=== PATIENT | male | born 1975 | race Caucasian/White ===

== ENCOUNTER 2016-05-12 03:34 | Emergency (ER) | payer OTHER ==
[~2016-05-12] VITALS: Ht 190.5 cm; Wt 86.0 kg
[~2016-05-12 03:34] MED LIST: BACT800T5 PO; ERYT2GEL2 EX; TRET45CR EX; VARE.5 PO
[2016-05-12 03:39] VITALS: BP 137/80; PULSE 100; RESP 16; TEMP 97.4; O2SAT 98
[2016-05-12 03:57] VITALS: BP 139/81; PULSE 99; RESP 16; O2SAT 98
[2016-05-12] MEDS ORDERED: GABA100C4 PO (04:03)
--- NOTE | 2016-05-12 04:06 | PD ---
HPI Chief Complaint: Pain: Acute or Chronic Time Seen by Provider: 04:02 Travel History International Travel<30 days: No Contact w/Intl Traveler<30days: No Traveled to known affect area: No History of Present Illness HPI This is a 40-year-old male who presents to the emergency department with body aches all over his body described as in his joints, moderate severity, constant , associated with generalized weakness that's been going on for 3 days. He reports he had a nonproductive cough yesterday. He's had some chills and some dysuria. He's never had symptoms like this before. He tried some BC powder but it's not helping. 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 He has a remote history of IV drug use and he says he last used 3 years ago. He has had episodes of epididymitis in the past. He says when he was a child he had a hypospadias repair and he was being evaluated by a urologist for possible back flow of urine into his kidneys. PFSH Past Medical History Blood Disorders: No Bipolar Disorder: Yes Anxiety: Yes Depression: Yes Cancer: No Cardiovascular Problems: No Diabetes: No Diminished Hearing: No Endocrine: No Gastrointestinal Disorders: Yes (IBS) Genitourinary: No Hepatitis: Yes (C) Musculoskeletal: Yes Neurologic: No Psychiatric: Yes (PARANOIA) Reproductive: No Respiratory: No Thyroid Disease: No Influenza Vaccination: Yes Past Surgical History Other Surgery: Yes (UROLOGY SX PT DOES NOT KNOW WHAT KIND OF SX AGE 1) Social History Alcohol Use: Yes (ONCE A WEEK) Tobacco Use: No Substance Use: Yes (former) Allergies-Medications (Allergen,Severity, Reaction): Coded Allergies: No Known Allergies (Verified , 05/12/16) Reported Meds & Prescriptions Reported Meds & Active Scripts Active Reported Gabapentin 100 Mg Cap 100 Mg PO TID Review of Systems Except as stated in HPI: all other systems reviewed are Neg Physical Exam Narrative GENERAL:Well appearing, no acute distress SKIN: Focused skin assessment warm and dry. HEAD: Atraumatic. Normocephalic. EYES: Pupils equal and round. No injection or drainage. ENT: Moist mucous membranes NECK: Trachea midline. CARDIOVASCULAR: Regular rate and rhythm. No murmur appreciated. RESPIRATORY: Clear to auscultation. Breath sounds equal bilaterally. GASTROINTESTINAL: Abdomen soft, non-tender, nondistended. : Mild tenderness to palpation in the posterior aspect of the scrotum with no testicular swelling and no urethral discharge MUSCULOSKELETAL: No obvious deformities. NEUROLOGICAL: Awake and alert. No obvious cranial nerve deficits. Moving all extremities. PSYCHIATRIC: Appropriate mood and affect; insight and judgment normal. Data Data Last Documented VS Vital Signs Date Time Temp Pulse Resp B/P Pulse Ox O2 Delivery O2 Flow Rate FiO2 05/12/16 03:57 99 16 139/81 98 Room Air 05/12/16 03:39 97.4 Orders Complete Blood Count With Diff (05/12/16 04:02) Comprehensive Metabolic Panel (05/12/16 04:02) Creatine Kinase (Cpk) (05/12/16 04:02) Urinalysis - C+S If Indicated (05/12/16 04:02) ^ Insert Iv (05/12/16 04:02) Sodium Chlor 0.9% 1000 Ml Inj (Ns 1000 M (05/12/16 04:15) Urine Culture (05/12/16 04:15) Ceftriaxone Inj (Rocephin Inj) (05/12/16 05:00) Labs Laboratory Tests Test 05/12/16 05/12/16 04:10 04:15 White Blood Count 16.1 TH/MM3 Red Blood Count 5.15 MIL/MM3 Hemoglobin 15.7 GM/DL Hematocrit 44.2 % Mean Corpuscular Volume 85.9 FL Mean Corpuscular Hemoglobin 30.4 PG Mean Corpuscular Hemoglobin 35.4 % Concent Red Cell Distribution Width 12.7 % Platelet Count 292 TH/MM3 Mean Platelet Volume 7.1 FL Neutrophils (%) (Auto) 86.0 % Lymphocytes (%) (Auto) 6.8 % Monocytes (%) (Auto) 6.4 % Eosinophils (%) (Auto) 0.5 % Basophils (%) (Auto) 0.3 % Neutrophils # (Auto) 13.9 TH/MM3 Lymphocytes # (Auto) 1.1 TH/MM3 Monocytes # (Auto) 1.0 TH/MM3 Eosinophils # (Auto) 0.1 TH/MM3 Basophils # (Auto) 0.0 TH/MM3 CBC Comment DIFF FINAL Differential Comment Sodium Level 138 MEQ/L Potassium Level 3.8 MEQ/L Chloride Level 105 MEQ/L Carbon Dioxide Level 22.8 MEQ/L Anion Gap 10 MEQ/L Blood Urea Nitrogen 19 MG/DL Creatinine 0.87 MG/DL Estimat Glomerular Filtration 97 ML/MIN Rate Random Glucose 74 MG/DL Calcium Level 9.1 MG/DL Total Bilirubin 1.3 MG/DL Aspartate Amino Transf 20 U/L (AST/SGOT) Alanine Aminotransferase 18 U/L (ALT/SGPT) Alkaline Phosphatase 88 U/L Total Creatine Kinase 283 U/L Total Protein 7.8 GM/DL Albumin 4.2 GM/DL Urine Color YELLOW Urine Turbidity HAZY Urine pH 6.5 Urine Specific [place] 1.034 Urine Protein 30 mg/dL Urine Glucose (UA) NEG mg/dL Urine Ketones 150 mg/dL Urine Occult Blood TRACE Urine Nitrite NEG Urine Bilirubin NEG Urine Urobilinogen 2.0 MG/DL Urine Leukocyte Esterase LARGE Urine RBC 12 /hpf Urine WBC /hpf Urine Squamous Epithelial 2 /hpf Cells Urine Renal Epithelial Cells 1 /hpf Urine Mucus FEW /lpf Microscopic Urinalysis Comment CULTURE INDICATED MDM Medical Decision Making Medical Screen Exam Complete: Yes Emergency Medical Condition: Yes Medical Record Reviewed: Yes (patient had a diagnosis of epididymoorchitis back in 2012 and had a urine culture that grew Escherichia coli that was resistant to ciprofloxacin) Interpretation(s) Mild tachycardia Leukocytosis with 86% neutrophils Electrolytes are reassuring CK is normal Urinalysis: Large amount of white blood cells Differential Diagnosis Epididymoorchitis, urinary tract infection, pyelonephritis, rhabdomyolysis, Nancie syndrome, disseminated gonococcal disease Narrative Course This is a 40-year-old male who presents to the emergency department with body aches, malaise and dysuria. He has a history of recurrent genitourinary infections. Back in 2012 his urine culture grew Escherichia coli. He was placed on a monitor and an IV was established. He was found to have a white blood cell count of 16 consistent with an infection. Urinalysis demonstrates a large amount of white blood cells. He has a benign exam. I think given his prior urine culture it's reasonable to treat him with ceftriaxone as well as doxycycline for possible sexually transmitted disease. Patient was advised to follow-up with a urologist. He is nontoxic appearing and I think appropriate for outpatient antibiotics. He Was given a dose of IV antibiotics here in the emergency department. Diagnosis Primary Impression: Epididymoorchitis Referrals: Cricket Leggett MD Patient Instructions: General Instructions Additional Instructions: If you develop fever, persistent vomiting, back pain, or inability to eat return to the emergency department as your urine infection may have progressed to a kidney infection. Complete your antibiotics as prescribed. Stay well hydrated with Gatorade or water. Follow-up with a urologist as an outpatient. Med/Other Pt SpecificInfo: Prescription(s) given Scripts Naproxen 500 Mg [id number] Mg PO BID PRN (PAIN SCALE 4 TO 10) #20 TAB Ref 0 Prov:Jessie Amor MD 05/12/16 Doxycycline Hyclate 100 Mg [id number] Mg PO BID #20 CAP Ref 0 Prov:Jessie Amor MD 05/12/16 Cephalexin (Keflex)500 Mg [id number] Mg PO Q12H 7 Days Ref 0 Prov:Jessie Amor MD 05/12/16 Disposition: 01 DISCHARGE HOME Condition: Stable Jessie Amor MD May 12, 2016 04:06
[2016-05-12] MEDS ORDERED: SODIUM CHLOR 0.9% 1000 ML INJ 1,000 ML IV ONE (04:15)
[2016-05-12 04:25] LABS: AUTOMATED NEUTROPHIL # 13.9 TH/MM3 (1.8-7.7); BASOPHIL % 0.3 % (0.0-2.0); EOSINOPHIL # 0.1 TH/MM3 (0-0.4); EOSINOPHIL % 0.5 % (0.0-4.0); HEMATOCRIT 44.2 % (39.0-51.0); HEMO FLAGS DIFF FINAL; LYMPH % 6.8 % (9.0-44.0); LYMPHOCYTE # 1.1 TH/MM3 (1.0-4.8); MEAN CELL VOLUME 85.9 FL (80.0-100.0); MEAN CORPUSCULAR HEMOGLOBIN 30.4 PG (27.0-34.0); MEAN CORPUSCULAR HGB CONC 35.4 % (32.0-36.0); MONO % 6.4 % (0.0-8.0); PLATELET COUNT 292 TH/MM3 (150-450); RED BLOOD COUNT 5.15 MIL/MM3 (4.50-5.90); RED CELL DISTRIBUTION WIDTH 12.7 % (11.6-17.2); WHITE BLOOD COUNT 16.1 TH/MM3 (4.0-11.0)
[2016-05-12 04:46] LABS: BLOOD, URINE TRACE (NEG); GLUCOSE,URINE NEG (NEG); KETONE, URINE 150 mg/dL (NEG); MUCUS URINE FEW /lpf (OCC); NITRITE,URINE NEG (NEG); PH, URINE 6.5 (5.0-8.5); RENAL EPITHELIAL CELLS 1 /hpf; SQUAMOUS EPITHELIAL CELL URINE 2 /hpf (0-5); URINE COLOR YELLOW (YELLW/STRAW)
[2016-05-12 04:47] LABS: COMMENT (UR) CULTURE INDICATED; CULTURE IF INDICATED CULTURE INDICATED
[2016-05-12 04:54] LABS: ANION GAP 10 MEQ/L (5-15); AST (GOT) 20 U/L (15-37); BICARBONATE 22.8 MEQ/L (21.0-32.0); BLOOD UREA NITROGEN 19 MG/DL (7-18); CHLORIDE 105 MEQ/L (98-107); GLOMERULAR FILTRATION RATE 97 ML/MIN (>89); POTASSIUM 3.8 MEQ/L (3.5-5.1); SODIUM (NA) 138 MEQ/L (136-145)
[2016-05-12 04:57] LABS: ALKALINE PHOSPHATASE 88 U/L (45-117); ALT (GPT) 18 U/L (12-78); CREATINE KINASE 283 U/L (39-308); TOTAL BILIRUBIN ADULT 1.3 MG/DL (0.2-1.0)
[2016-05-12] MEDS ORDERED: cefTRIAXone INJ 1,000 MG in SODIUM CHLORIDE 0.9% INJ 100 ML IV ONE (05:00)
[2016-05-12] MEDS ORDERED: CEPH-460 PO (05:15)
[2016-05-12] MEDS ORDERED: NAPR500T PO (05:15)
[2016-05-12] MEDS ORDERED: DOXY100C PO (05:15)
== END 2016-05-12 05:40 | disposition home or self-care (01) ==
LOC: NEPE 03:34
DX: N45.3 Epididymo-orchitis (principal); R00.0 Tachycardia, unspecified; D72.829 Elevated white blood cell count, unspecified; B96.20 Unspecified Escherichia coli [E. coli] as the cause of diseases classified elsewhere
CPT/HCPCS: 80053; 81001; 82550; 85025; 87077; 87086; 87186; 96361; 96365; 99284; J0696; J7030

== ENCOUNTER 2016-05-31 19:05 | Emergency (ER) | payer OTHER ==
[~2016-05-31] VITALS: Ht 190.5 cm; Wt 88.0 kg
[~2016-05-31 19:05] MED LIST changes: -BACT800T5 PO; +CEPH-460 PO; +DOXY100C PO; -ERYT2GEL2 EX; +GABA100C4 PO; +NAPR500T PO; -TRET45CR EX; -VARE.5 PO
[2016-05-31 19:07] VITALS: BP 145/97; PULSE 83; RESP 16; TEMP 98; O2SAT 98
--- NOTE | 2016-05-31 19:53 | PD ---
HPI Chief Complaint: General Weakness Time Seen by Provider: 19:53 Travel History International Travel<30 days: No Contact w/Intl Traveler<30days: No Traveled to known affect area: No History of Present Illness HPI 40-year-old male presents to the emergency department stay for evaluation of symptoms that have returned after completing his antibiotics 3 days ago. Patient was seen 2 weeks ago for body aches "all over, constant and overall feeling fatigued. He was diagnosed with epididymitis/orchitis at that time and completed his his antibiotics. He has not yet scheduled follow-up with the urologist. He states that he would like to do this but he is just not gotten around to it. Denies any fever but has felt mildly chilled. Is concerned something might be wrong with his kidneys because he has been increasingly thirsty lately. Denies any other symptoms at this time. PFSH Past Medical History Blood Disorders: No Bipolar Disorder: Yes Anxiety: Yes Depression: Yes Cancer: No Cardiovascular Problems: No Diabetes: No Diminished Hearing: No Endocrine: No Gastrointestinal Disorders: Yes (IBS) Genitourinary: No Hepatitis: Yes (C) Musculoskeletal: Yes Neurologic: No Psychiatric: Yes (PARANOIA) Reproductive: No Respiratory: No Thyroid Disease: No Past Surgical History Other Surgery: Yes (UROLOGY SX PT DOES NOT KNOW WHAT KIND OF SX AGE 1) Social History Alcohol Use: Yes (ONCE A WEEK) Tobacco Use: Yes (1 ppd) Substance Use: Yes (former) Allergies-Medications (Allergen,Severity, Reaction): Coded Allergies: No Known Allergies (Verified , 05/31/16) Reported Meds & Prescriptions Reported Meds & Active Scripts Active Naproxen 500 Mg Tab 500 Mg PO BID PRN Doxycycline Hyclate 100 Mg Cap 100 Mg PO BID Keflex (Cephalexin) 500 Mg Cap 500 Mg PO Q12H 7 Days Reported Gabapentin 100 Mg Cap 100 Mg PO TID Review of Systems Except as stated in HPI: all other systems reviewed are Neg Physical Exam Narrative GENERAL: Well-nourished male patient, in no acute distress SKIN: Focused skin assessment warm/dry. HEAD: Atraumatic. Normocephalic. EYES: Pupils equal and round. No scleral icterus. No injection or drainage. ENT: No nasal bleeding or discharge. Mucous membranes pink and moist. NECK: Trachea midline. No JVD. CARDIOVASCULAR: Regular rate and rhythm. No murmur appreciated. RESPIRATORY: No accessory muscle use. Clear to auscultation. Breath sounds equal bilaterally. GASTROINTESTINAL: Abdomen soft, non-tender, nondistended. Hepatic and splenic margins not palpable. MUSCULOSKELETAL: No obvious deformities. No clubbing. No cyanosis. No edema. NEUROLOGICAL: Awake and alert. No obvious cranial nerve deficits. Motor grossly within normal limits. Normal speech. Data Data Last Documented VS Vital Signs Date Time Temp Pulse Resp B/P Pulse Ox O2 Delivery O2 Flow Rate FiO2 05/31/16 19:07 98.0 83 16 145/97 98 Room Air Orders Complete Blood Count With Diff (05/31/16 19:51) Urinalysis - C+S If Indicated (05/31/16 19:51) Ecg Monitoring (05/31/16 19:51) Iv Access Insert/Monitor (05/31/16 19:51) Oximetry (05/31/16 19:51) Oxygen Administration (05/31/16 19:51) Basic Metabolic Panel (Bmp) (05/31/16 19:51) Sodium Chlor 0.9% 1000 Ml Inj (Ns 1000 M (05/31/16 20:00) Gc And Chlamydia Pcr (05/31/16 19:57) Labs Laboratory Tests Test 05/31/16 20:15 White Blood Count 5.7 TH/MM3 Red Blood Count 5.06 MIL/MM3 Hemoglobin 15.5 GM/DL Hematocrit 43.4 % Mean Corpuscular Volume 85.7 FL Mean Corpuscular Hemoglobin 30.6 PG Mean Corpuscular Hemoglobin 35.7 % Concent Red Cell Distribution Width 12.7 % Platelet Count 368 TH/MM3 Mean Platelet Volume 7.1 FL Neutrophils (%) (Auto) 44.5 % Lymphocytes (%) (Auto) 42.8 % Monocytes (%) (Auto) 9.7 % Eosinophils (%) (Auto) 2.3 % Basophils (%) (Auto) 0.7 % Neutrophils # (Auto) 2.5 TH/MM3 Lymphocytes # (Auto) 2.4 TH/MM3 Monocytes # (Auto) 0.6 TH/MM3 Eosinophils # (Auto) 0.1 TH/MM3 Basophils # (Auto) 0.0 TH/MM3 CBC Comment DIFF FINAL Differential Comment MDM Medical Decision Making Medical Screen Exam Complete: Yes Emergency Medical Condition: Yes Medical Record Reviewed: Yes Differential Diagnosis Recurrent epididymitis versus UTI versus electrolyte abnormality versus viral syndrome versus STD Narrative Course 40-year-old male presents to the emergency department for evaluation of symptoms that have returned after stopping his antibiotics 3 days ago. Patient appears well and without distress. His vital signs are stable. I discussed the patient with my attending physician Dr. Givens who recommends repeat CBC, BMP , and urine. CBC is much improved from previous lab work. There is no leukocytosis and no neutrophilia. BMP is pending. UA was not yet been sent. [address] Givens, my attending physician. Disposition will pend his judgment. Condition: Stable SammieHarrisonRadhapeter HERNANDEZ May 31, 2016 19:53
[2016-05-31] MEDS ORDERED: SODIUM CHLOR 0.9% 1000 ML INJ 1,000 ML IV ONE (20:00)
[2016-05-31 20:42] LABS: AUTOMATED NEUTROPHIL # 2.5 TH/MM3 (1.8-7.7); BASOPHIL % 0.7 % (0.0-2.0); EOSINOPHIL # 0.1 TH/MM3 (0-0.4); EOSINOPHIL % 2.3 % (0.0-4.0); HEMATOCRIT 43.4 % (39.0-51.0); HEMO FLAGS DIFF FINAL; LYMPH % 42.8 % (9.0-44.0); LYMPHOCYTE # 2.4 TH/MM3 (1.0-4.8); MEAN CELL VOLUME 85.7 FL (80.0-100.0); MEAN CORPUSCULAR HEMOGLOBIN 30.6 PG (27.0-34.0); MEAN CORPUSCULAR HGB CONC 35.7 % (32.0-36.0); MONO % 9.7 % (0.0-8.0); NEUT % 44.5 % (16.0-70.0); PLATELET COUNT 368 TH/MM3 (150-450); RED BLOOD COUNT 5.06 MIL/MM3 (4.50-5.90); RED CELL DISTRIBUTION WIDTH 12.7 % (11.6-17.2); WHITE BLOOD COUNT 5.7 TH/MM3 (4.0-11.0)
[2016-05-31 20:53] LABS: BICARBONATE 27.3 MEQ/L (21.0-32.0); POTASSIUM 3.5 MEQ/L (3.5-5.1)
[2016-05-31] MEDS ORDERED: CYCL1TAB29 PO (21:18)
[2016-05-31] MEDS ORDERED: ULTR50TA5 PO (21:18)
[2016-05-31 21:26] LABS: BLOOD, URINE NEG (NEG); GLUCOSE,URINE NEG (NEG); KETONE, URINE NEG (NEG); NITRITE,URINE NEG (NEG); PH, URINE 6.5 (5.0-8.5); URINE COLOR LIGHT-YELLOW (YELLW/STRAW)
[2016-05-31 21:30] LABS: COMMENT (UR) CATH-CULT NOT IND; CULTURE IF INDICATED CATH CULTURE NOT IND
--- NOTE | 2016-06-01 00:05 | PD ---
Physical Exam Narrative Patient was seen by my land surveyor assistant and signed out to me. Data Data Last Documented VS Vital Signs Date Time Temp Pulse Resp B/P Pulse Ox O2 Delivery O2 Flow Rate FiO2 05/31/16 19:07 98.0 83 16 145/97 98 Room Air Orders Complete Blood Count With Diff (05/31/16 19:51) Urinalysis - C+S If Indicated (05/31/16 19:51) Ecg Monitoring (05/31/16 19:51) Iv Access Insert/Monitor (05/31/16 19:51) Oximetry (05/31/16 19:51) Oxygen Administration (05/31/16 19:51) Basic Metabolic Panel (Bmp) (05/31/16 19:51) Sodium Chlor 0.9% 1000 Ml Inj (Ns 1000 M (05/31/16 20:00) Gc And Chlamydia Pcr (05/31/16 19:57) Labs Laboratory Tests Test 05/31/16 05/31/16 20:15 21:09 White Blood Count 5.7 TH/MM3 Red Blood Count 5.06 MIL/MM3 Hemoglobin 15.5 GM/DL Hematocrit 43.4 % Mean Corpuscular Volume 85.7 FL Mean Corpuscular Hemoglobin 30.6 PG Mean Corpuscular Hemoglobin 35.7 % Concent Red Cell Distribution Width 12.7 % Platelet Count 368 TH/MM3 Mean Platelet Volume 7.1 FL Neutrophils (%) (Auto) 44.5 % Lymphocytes (%) (Auto) 42.8 % Monocytes (%) (Auto) 9.7 % Eosinophils (%) (Auto) 2.3 % Basophils (%) (Auto) 0.7 % Neutrophils # (Auto) 2.5 TH/MM3 Lymphocytes # (Auto) 2.4 TH/MM3 Monocytes # (Auto) 0.6 TH/MM3 Eosinophils # (Auto) 0.1 TH/MM3 Basophils # (Auto) 0.0 TH/MM3 CBC Comment DIFF FINAL Differential Comment Sodium Level 139 MEQ/L Potassium Level 3.5 MEQ/L Chloride Level 104 MEQ/L Carbon Dioxide Level 27.3 MEQ/L Anion Gap 8 MEQ/L Blood Urea Nitrogen 11 MG/DL Creatinine 0.88 MG/DL Estimat Glomerular Filtration 95 ML/MIN Rate Random Glucose 106 MG/DL Calcium Level 8.7 MG/DL Urine Color LIGHT-YELLOW Urine Turbidity CLEAR Urine pH 6.5 Urine Specific [place] 1.007 Urine Protein NEG mg/dL Urine Glucose (UA) NEG mg/dL Urine Ketones NEG mg/dL Urine Occult Blood NEG Urine Nitrite NEG Urine Bilirubin NEG Urine Urobilinogen LESS THAN 2.0 MG/DL Urine Leukocyte Esterase NEG Urine RBC LESS THAN 1 /hpf Urine WBC LESS THAN 1 /hpf Microscopic Urinalysis Comment CATH-CULT NOT IND MDM Medical Record Reviewed: Yes Supervised Visit with HOMER: Yes Interpretation(s) 11:59 PM. CBC within normal limit. BMP within normal limit. UA is negative. Diagnosis Primary Impression: Viral syndrome Patient Instructions: General Instructions Additional Instruction: Ibuprofen for pain. Follow-up with personal physician. Return if worse. Med/Other Pt SpecificInfo: No Meds Exist/No RX given Disposition: 01 DISCHARGE HOME Condition: Stable Chevy Givens MD Jun 01, 2016 00:05
[2016-06-01 00:32] LABS: CHLAMYDIA PCR NOT DETECTED (NOT DETECT); NEISSERIA PCR NOT DETECTED (NOT DETECT)
== END 2016-06-01 00:21 | disposition home or self-care (01) ==
LOC: NEPD 19:05
DX: B34.9 Viral infection, unspecified (principal); M79.1 Myalgia; R53.83 Other fatigue; R63.1 Polydipsia; F17.200 Nicotine dependence, unspecified, uncomplicated; Z86.59 Personal history of other mental and behavioral disorders; Z87.19 Personal history of other diseases of the digestive system; Z86.19 Personal history of other infectious and parasitic diseases; Z87.39 Personal history of other diseases of the musculoskeletal system and connective tissue
CPT/HCPCS: 80048; 81001; 85025; 87491; 87591; 99283; J7030